=== PATIENT | female | born 1995 | race Caucasian/White ===

== ENCOUNTER 2024-04-01 15:40 | Emergency (ER) | payer MEDICAID ==
[~2024-04-01] VITALS: Ht 165.1 cm; Wt 129.3 kg
[~2024-04-01 15:40] MED LIST: AZIT250C11 PO; [UNRECOGNIZED DRUG - CODE] PO
[2024-04-01 16:07] VITALS: BP 142/86; PULSE 73; RESP 16; TEMP 97.4; O2SAT 98
[2024-04-01] MEDS: NACL 0.9% 1,000 ML IV SCH (17:09)
[2024-04-01 17:10] LABS: BASOPHILS % (AUTO) 0.4 % (0.0-2.0); EOSINOPHILS # (AUTO) 0.2 K/uL (0-0.4); HEMATOCRIT 41.2 % (36-48); HEMOGLOBIN 13.6 g/dL (12.0-16.0); LYMPHOCYTES # (AUTO) 2.9 K/uL (2.5-16.5); LYMPHOCYTES % (AUTO) 25.3 % (20.5-51.1); MEAN CORPUSCULAR HEMOGLOBIN 28 pg (27-31); MEAN CORPUSCULAR HGB CONC 33 g/dL (33-37); MEAN CORPUSCULAR VOLUME 85.7 fL (80-94); MONOCYTES # (AUTO) 0.6 K/uL (0.8-1.0); MONOCYTES % (AUTO) 5.4 % (1.7-9.3); NEUTROPHILS # (AUTO) 7.6 K/uL (1.8-7.7); NEUTROPHILS % (AUTO) 66.9 % (42.2-75.2); PLATELET COUNT (AUTO) 418 K/uL (140-450); RED BLOOD CELL COUNT(AUTO) 4.81 MIL/uL (4.20-5.40); RED CELL DISTRIBUTION WIDTH 14.5 % (11.6-13.7); WHITE BLOOD COUNT (AUTO) 11.3 K/uL (4.8-10.8)
[2024-04-01 17:18] LABS: ANION GAP 12.1 (8-16); CARBON DIOXIDE 30.8 mmol/L (21-32); CREATININE 0.7 mg/dL (0.6-1.3); POTASSIUM 3.9 mmol/L (3.5-5.1)
[2024-04-01] MEDS: KETOROLAC 30 MG/ML VIAL IVP ONE (17:22)
[2024-04-01] MEDS: ONDANSETRON 4 MG/2 ML VIAL IVP ONE (17:22)
[2024-04-01 17:25] LABS: ALBUMIN 3.5 g/dL (3.4-5.0); BILIRUBIN,DIRECT 0.1 mg/dL (0.0-0.3); TOTAL BILIRUBIN 0.2 mg/dL (0.0-1.0); TOTAL PROTEIN, SERUM 8.1 g/dL (6.4-8.2)
[2024-04-01 17:33] LABS: BILIRUBIN,URINE NEGATIVE (NEGATIVE); BLOOD, URINE TRACE-I (NEGATIVE); COLOR,URINE YELLOW (YELLOW); LEUKOCYTE ESTERASE ,URINE 1+ (NEGATIVE); NITRITE, URINE NEGATIVE (NEGATIVE); PROTEIN,URINE NEGATIVE (NEGATIVE); UGLUCOSE NEGATIVE (NEGATIVE); UROBILINOGEN,URINE 0.2 EU/dL (0.2 - 1)
[2024-04-01 17:34] LABS: APPEARANCE,URINE SLIGHTLY CLOUDY (CLEAR)
[2024-04-01 17:45] LABS: BACTERIA,URINE 10-30 (MOD) /HPF (None Seen); MUCUS,URINE 1+ /LPF (None Seen); SQUAMOUS EPITHELIAL CELL,UR 4-10 (MOD) /LPF (0-3 (FEW))
[2024-04-01 18:00] VITALS: O2SAT 98
[2024-04-01] MEDS ORDERED: SULF-58 PO (18:37)
[2024-04-01] MEDS ORDERED: ONDA-188 SL (18:37)
[2024-04-01] MEDS ORDERED: IBUP-2213 PO (18:37)
== END 2024-04-01 19:19 | disposition home or self-care (01) ==
LOC: MED 15:40
DX: R51.9 Headache, unspecified (principal); N39.0 Urinary tract infection, site not specified; R20.2 Paresthesia of skin; R20.0 Anesthesia of skin; Z79.1 Long term (current) use of non-steroidal anti-inflammatories (NSAID); Z79.899 Other long term (current) drug therapy; Z88.0 Allergy status to penicillin
CPT/HCPCS: 36415; 80048; 80076; 81001; 81025; 82948; 85025; 87086; 96361; 96374; 96375; 99284; J1885; J2405; J7030